=== PATIENT | female | born 1985 | race Hispanic/Latino ===

== ENCOUNTER 2019-06-27 11:00 | Inpatient (IN) | payer OTHER ==
[~2019-06-27] VITALS: Ht 152.4 cm; Wt 77.6 kg
[2019-06-27 16:48] LABS: HEMATOCRIT 33.8 % (36-48); MEAN CORPUSCULAR HGB CONC 35.7 g/dL (32.0-36.0); MEAN CORPUSCULAR VOLUME 89.5 fL (79-99); PLATELET COUNT (AUTO) 108 K/uL (130-400); RED BLOOD CELL COUNT(AUTO) 3.78 MIL/uL (4.00-5.50); RED CELL DISTRIBUTION WIDTH 14.4 % (11.0-15.5); WHITE BLOOD COUNT (AUTO) 5.1 K/uL (4.8-10.8)
[2019-06-28] MEDS ORDERED: LACTATED RINGERS 1000ML 1,000 ML IV SCH (05:45)
[2019-06-28] MEDS ORDERED: CEFAZOLIN SODIUM 1 GM VIAL IVP PRN (05:45)
[2019-06-28] MEDS ORDERED: METOCLOPRAMIDE 10 MG/2 ML VIAL ONE (06:28)
[2019-06-28] MEDS ORDERED: CITRIC ACID/SODIUM CITRATE 30 ML UDCUP ONE (06:28)
[2019-06-28] MEDS ORDERED: CEFAZOLIN SODIUM 1 GM VIAL ONE (06:29)
[2019-06-28] MEDS ORDERED: METOCLOPRAMIDE 10 MG/2 ML VIAL IVP PRN (06:30)
[2019-06-28] MEDS ORDERED: CITRIC ACID/SODIUM CITRATE 30 ML UDCUP PO PRN (06:30)
[2019-06-28] MEDS ORDERED: DURAMORPH PF1 MG/ML 10ML AMP IV ONE (06:44)
[2019-06-28] MEDS ORDERED: FENTANYL CITRATE PF 50 MCG/1 ML 2ML VIAL ONE (06:44)
[2019-06-28] MEDS ORDERED: CEFAZOLIN SODIUM 1 GM VIAL IVP ONE (07:05)
[2019-06-28] MEDS ORDERED: OXYTOCIN 10 USP UNITS/ML ONE ×2 (07:27→07:45)
[2019-06-28] MEDS ORDERED: ONDANSETRON HCL 4 MG/2 ML VIAL ONE (07:31)
[2019-06-28] MEDS ORDERED: MIDAZOLAM HCL 1 MG/ML 2ML VIAL ONE (07:34)
[2019-06-28] MEDS ORDERED: PHENYLEPHRINE HCL 10 MG/ML 1ML VIAL IV ONE (07:40)
--- NOTE | 2019-06-28 09:40 | NUR ---
ARRIVED PATIENT ARRIVED TO UNIT VIA BED FORM LABOR AND DELIVERY. PATIENT AAOX3. BABY IS SKIN TO SKIN ON CHEST. FUNDUS IS FIRM, BLEEDING IS SCANT. SCDS TO BILATERAL LOWER EXTREMITIES. HASSAN AT BEDSIDE DRAINING CLEAR YELLOW URINE. PERICARE GIVEN. ORIENTED PATIENT TO ROOM. ADVISED TO CALL WITH ANY NEEDS OR CONCERNS. PATIENT VERBALIZED UNDERSTANDING.
[2019-06-28 09:42] VITALS: BP 140/88
[2019-06-28] MEDS ORDERED: PNV1TABL17 PO (10:08)
[2019-06-28] MEDS ORDERED: FERR-82 PO (10:08)
[2019-06-28] MEDS ORDERED: SODIUM CHLORIDE 0.9% 10 ML VIAL IVP PRN (10:15)
[2019-06-28] MEDS ORDERED: OXYTOCIN-LR 20 UNITS/1000 ML 1,000 ML IV PRN (10:15)
[2019-06-28] MEDS ORDERED: MEPERIDINE-PF 50 MG/ML SYG ONE ×2 (10:43→19:45)
[2019-06-28] MEDS ORDERED: MEPERIDINE-PF 25 MG/ML SYG ONE ×2 (10:43→19:45)
[2019-06-28] MEDS: PROMETHAZINE HCL 25 MG/ML 1ML AMPULE IM PRN ×2 (10:46→20:34)
--- NOTE | 2019-06-28 10:46 | NUR ---
MEDICATION DEMEROL 50MG+25MG AND PHENERGAN 25MG GIVEN TO PATIENT IM TO RIGHT GLUTEUS. NO BLOOD RETURN ON ASPIRATION. PATIENT TOLERATED INJECTION WELL.
[2019-06-28 11:29] VITALS: BP 136/77
--- NOTE | 2019-06-28 11:42 | NUR ---
COMFORT PATIENT STATES PAIN IS BETTER 3/10. PATIENT REQUESTING BOTTLE FOR BABY, OFFERED TO ASSIST TO LATCH BABY TO BREAST. PATIENT DECLINED ASSISTANCE. NURSERY CALLED FOR BOTTLE PER PATIENT REQUEST.
[2019-06-28] MEDS ORDERED: IBUPROFEN 600 MG TABLET PO PRN (12:15)
[2019-06-28] MEDS ORDERED: DiphenhydrAMINE HCL 50 MG/ML VIAL IVP PRN (12:30)
[2019-06-28] MEDS ORDERED: EPHEDRINE SULFATE 50 MG/ML AMPULE IVP PRN (12:30)
[2019-06-28] MEDS ORDERED: ONDANSETRON HCL 4 MG/2 ML VIAL IVP PRN (12:30)
[2019-06-28] MEDS ORDERED: NALOXONE HCL 0.4 MG/1 ML ML IVP PRN ×2 (12:30)
--- NOTE | 2019-06-28 16:10 | NUR ---
COMFORT ASSISTED PATIENT WITH PERICARE. 600ML OF CLEAR YELLOW URINE EMPTIED FROM HASSAN.
[2019-06-28 16:44] VITALS: BP 122/73
[2019-06-28 20:00] VITALS: BP 117/69
[2019-06-28] MEDS: MEPERIDINE-PF 75 MG/ML SYG IM PRN (20:36)
[2019-06-28] MEDS: DEXTROSE 5 %-0.45 % NACL 1,000 ML IV PRN (22:39)
[2019-06-28 23:40] VITALS: BP 127/74
[2019-06-29] MEDS ORDERED: MEPERIDINE-PF 25 MG/ML SYG ONE (03:14)
[2019-06-29] MEDS ORDERED: MEPERIDINE-PF 50 MG/ML SYG ONE (03:14)
[2019-06-29] MEDS: PROMETHAZINE HCL 25 MG/ML 1ML AMPULE IM PRN (03:19)
[2019-06-29] MEDS: MEPERIDINE-PF 75 MG/ML SYG IM PRN (03:20)
[2019-06-29 04:00] VITALS: BP 125/73
[2019-06-29] MEDS ORDERED: BISACODYL 10 MG SUPP.RECT RC PRN (06:00)
[2019-06-29] MEDS ORDERED: HYDROCODONE/ACETAMINOPHEN 5/325 MG TAB PO PRN (06:00)
[2019-06-29] MEDS ORDERED: ACETAMINOPHEN EXTRA STRENGTH 500 MG TABLET PO PRN (06:00)
[2019-06-29] MEDS ORDERED: LANOLIN 30GM OINTMENT TP PRN (06:00)
[2019-06-29] MEDS ORDERED: ACETAMINOPHEN-CODEINE 300/30MG TAB PO PRN (06:00)
[2019-06-29] MEDS: DEXTROSE 5 %-0.45 % NACL 1,000 ML IV PRN (06:09)
--- NOTE | 2019-06-29 06:20 | NUR ---
Nixon catheter removed, tip intact, pericare done, abdominal dressing removed, incision is dry and intact with raheem, applied telfa pad, applied abdominal binder.informed to call for assistance to the bathroom, pt voiced understanding. Addendum: 06/29/19 at 0714 by BELEM ABEBE RN Amended: Links added.
[2019-06-29 06:39] LABS: HEMATOCRIT 30.1 % (36-48); MEAN CORPUSCULAR HEMOGLOBIN 31.5 pg (27.0-33.0); MEAN CORPUSCULAR HGB CONC 34.6 g/dL (32.0-36.0); PLATELET COUNT (AUTO) 89 K/uL (130-400); RED BLOOD CELL COUNT(AUTO) 3.31 MIL/uL (4.00-5.50); RED CELL DISTRIBUTION WIDTH 14.6 % (11.0-15.5); WHITE BLOOD COUNT (AUTO) 9.6 K/uL (4.8-10.8)
[2019-06-29 07:37] VITALS: BP 114/59
[2019-06-29 08:09] LABS: HEPATITIS Bs ANTIGEN SCREEN P Negative (Negative)
[2019-06-29] MEDS: SIMETHICONE 80 MG TAB.CHEW PO PRN ×3 (08:16→21:24)
[2019-06-29] MEDS: DOCUSATE SODIUM 100 MG CAP PO SCH ×2 (08:16→21:24)
[2019-06-29] MEDS: IBUPROFEN 600 MG TABLET PO PRN ×3 (08:17→21:24)
[2019-06-29 11:55] VITALS: BP 123/78
--- NOTE | 2019-06-29 14:02 | NUR ---
EDUCATION PATIENT UP TO SHOWER. EDUCATED PATIENT ON HOW TO CLEAN INCISION. ADVISED PATIENT TO PULL ON EMERGENCY CALL CORDS FEELING DIZZY AND TO CALL WITH ANY NEEDS OR CONCERNS.
[2019-06-29] MEDS ORDERED: DIPH,PERTUSS(ACELL),TET VAC/PF 0.5 ML VIAL IM ONE (14:30)
--- NOTE | 2019-06-29 15:00 | NUR ---
ADVISED PATIENT TO AMBULATE IN THE HALLWAY TO HELP PASS GAS AND PREVENT DVTS. ADVISED PATIENT TO CONTINUE WITH I.S. MAX VOLUME IS 500ML. PATIENT VERBALIZED UNDERSTANDING.
--- NOTE | 2019-06-29 15:05 | NUR ---
RHOGAM RHOGAM IM ADMINISTERED TO LEFT DELTOID. NO BLOOD RETURN ON ASPIRATION. PATIENT TOLERATED WELL.
[2019-06-29 16:39] VITALS: BP 131/82
[2019-06-29 19:35] VITALS: BP 133/78
[2019-06-29 23:37] VITALS: BP 143/80
[2019-06-30 03:31] VITALS: BP 129/87
[2019-06-30 06:59] VITALS: BP 141/88
[2019-06-30] MEDS: DOCUSATE SODIUM 100 MG CAP PO SCH (08:47)
[2019-06-30] MEDS: SIMETHICONE 80 MG TAB.CHEW PO PRN (08:48)
[2019-06-30] MEDS: IBUPROFEN 600 MG TABLET PO PRN (08:49)
[2019-06-30 11:46] VITALS: BP 120/76
--- NOTE | 2019-06-30 12:49 | NUR ---
INSTRUCTIONS DISCHARGE INSTRUCTIONS READ AND EXPLAINED TO PATIENT. PRESCRIPTION FOR TYLENOL #3, MOTRIN 600MG HANDED TO PATIENT.
--- NOTE | 2019-06-30 13:29 | NUR ---
DISCHARGE PATIENT LEFT UNIT VIA WHEELCHAIR WITH BABY IN HAND. PERSONAL VEHICLE USED FOR TRANSPORTATION. BABY SECURE IN CARSEAT. NO COMPLAINTS OR CONCERNS ADDRESSED FROM PATIENT ON DISCHARGE. Addendum: 06/30/19 at 1331 by WON GARCÍA LVN LVN PATIENT LEFT UNIT AT 1330.
== END 2019-06-30 13:30 | disposition home or self-care (01) | DRG 785 ==
LOC: EDSTATUS 11:00 → LDH 06-28 05:29 → WSH 06-28 09:40
PROVIDERS: ADMIT Obstetrics & Gynecology; ATTEND Obstetrics & Gynecology
PROC: 0UB70ZZ Excision of Bilateral Fallopian Tubes, Open Approach (ICD-10-PCS; 2019-06-28)
PROC: 10D00Z1 Extraction of Products of Conception, Low, Open Approach (ICD-10-PCS; principal; 2019-06-28 08:00)
PROC: 3E0234Z Introduction of Serum, Toxoid and Vaccine into Muscle, Percutaneous Approach (ICD-10-PCS; 2019-06-29)
DX: O34.211 Maternal care for low transverse scar from previous cesarean delivery (principal); O26.893 Other specified pregnancy related conditions, third trimester; O69.81X0 Labor and delivery complicated by cord around neck, without compression, not applicable or unspecified; Z37.0 Single live birth; Z3A.39 39 weeks gestation of pregnancy; Z30.2 Encounter for sterilization; Z67.41 Type O blood, Rh negative; Z23 Encounter for immunization
CPT/HCPCS: 36415; 59510; 83033; 85027; 86592; 86850; 86900; 86901; 87340; 88302; 90715; A4344; A4450; A4606; G0378; J0690; J2175; J2250; J2274; J2370; J2405; J2550; J2590; J2765; J2791; J3010; J7120